=== PATIENT | female | born 1975 | race Caucasian/White ===

== ENCOUNTER 2020-10-03 17:33 | Emergency (ER) | payer OTHER, SELFPAY ==
[2020-10-03] VITALS (13 sets, daily range): BP systolic 109–140; BP diastolic 58–83; PULSE 63–81; RESP 12–20; TEMP 37.1; O2SAT 96–99
--- NOTE | ~2020-10-03 | US_ITS ---
EXAMINATION: US abdomen limited DATE: 10/03/2020 18:11 INDICATION: Right upper quadrant abdominal pain. TECHNIQUE: Multiple grayscale and Doppler ultrasound images of the abdomen were obtained. COMPARISON: CT abdomen and pelvis 05/22/2019 FINDINGS: The visualized portions of the head, body, and tail of the pancreas are normal. There is di ffuse hepatic steatosis. There is normal flow in main portal vein. The gallbladder is normal in size. No gallstones or gallbladder wall thickening. There was no sonographic Lopez sign. The common duct is dilated to 8 mm. Right kidney is normal. IMPRESSION: 1. Mildly dilated common duct, stable from 05/22/2019. 2. Diffuse hepatic steatosis. Reviewed, dictated and finalized at location A. ON KEEPER
--- NOTE | ~2020-10-03 | CT_ITS ---
EXAMINATION: CT abdomen pelvis w con DATE: 10/03/2020 19:07 INDICATION: Right abdominal pain. Nausea. TECHNIQUE: Computed tomography (CT) of the abdomen and pelvis was performed with 100 mL Omnipaque 350 intravenous contrast. Automated exposure control and iterative reconstruction technique were employe d. The dose-length product was 320.31 mGy-cm. COMPARISON: CT abdomen and pelvis 05/22/2019 FINDINGS: The visualized portions of the lung bases are clear without pneumonia or pleural effusion. The heart size is normal. No pericardial effusion. The liver, gallbladder, spleen, pancreas, adrenal glands, and kidneys are normal. There is diverticulosis of the colon without evidence of diverticulit is. There are no dilated loops of bowel. The appendix is normal. There are no pathologically enlarged lymph nodes. There is no free intraperitoneal fluid. There is mild lower thoracic spondylosis. IMPRESSION: 1. No etiology for the patient's symptoms. Reviewed, dictated and finalized at location A. TESTER
[2020-10-03 18:11] LABS: Add Urine Microscopic? NO; Appearance Urine Clear (Clear); Bilirubin Urine Negative (Negative); Blood Urine Negative (Negative); Color Urine Straw (Yellow); Glucose Urine UA Negative (Negative); Ketones Urine Negative (Negative); Leukocyte Esterase Ur Negative LEU/UL (Negative); Nitrate Urine Negative (Negative); Protein Urine Negative (Negative); Specific Grav Ur 1.011 (1.001-1.035); Urobilinogen Urine Negative mg/dL (<2.0)
[2020-10-03] MEDS: LACTATED RINGERS 1,000 ML 999 ML IV CONT (18:13)
[2020-10-03] MEDS: ONDANSETRON INJ 4 MG/2 ML VIAL IV PUSH (18:13)
[2020-10-03] MEDS: MORPHINE SULFATE (*CRX) 4 MG/ML INJ 6 MG IV PUSH (18:13)
--- NOTE | 2020-10-03 18:16 | ED.ABDPAIN ---
HPI - Abdominal Pain General Chief Complaint: Abdominal Pain Stated Complaint: R upper abd pain Time Seen by Provider: 10/03/20 17:42 Source: patient Mode of arrival: ambulatory Limitations: no limitations History of Present Illness HPI narrative: This is a 45 year old female who presents for evaluation of right upper abdominal pain. This pain started on , and it has been constant. Her pain is located on right upper quadrant. She reports nausea but no vomiting or diarrhea . She states she thought she may have had a UTI because she has some burning with urination. Her Urine at urgent care she reports was normal. She denies hematuria, fever, chills. She was seen by her PCP today and she was referred to ER for further testing. Her pain is worse with eating. Related Data Allergies Allergy/AdvReac Type Severity Reaction Status Date / Time aspirin [From Percodan] Allergy Headache Verified 10/03/20 17:35 oxycodone AdvReac Unknown Irritable Verified 10/03/20 17:35 Review of Systems Review of Systems: All systems reviewed & are unremarkable except as noted in HPI and below Constitutional: Constitutional: Denies chills and Denies fever(s) Cardiovascular: Cardiovascular: Denies chest pain Respiratory: Respiratory: Denies cough and Denies dyspnea Gastrointestinal: Gastrointestinal: Reports abdominal pain, Denies diarrhea, Reports nausea and Denies vomiting Genitourinary: Genitourinary: Denies hematuria, Denies nocturia, Reports dysuria and Reports flank pain [facility] Past Medical History Medical History (Updated 10/04/20 @ 00:00 by Background Daemon) Acute abdominal pain BMI 26.0-26.9,adult Carpal tunnel syndrome on both sides Chronic neck pain Family history of colon cancer in father GERD (gastroesophageal reflux disease) Migraine without aura and without status migrainosus, not intractable Seasonal allergic rhinitis Surgical History Surgical History (Updated 10/03/20 @ 19:47 by Riana Goss MD) History of partial hysterectomy Family History Family History (Updated 12/26/18 @ 13:14 by DOCTOR UNKNOWN) Father Family history of chronic obstructive pulmonary disease Family history of malignant neoplasm of gastrointestinal tract Family history of lung cancer Social History Social History (Updated 10/03/20 @ 16:38 by Kip Chris [facility]) Years smoked: 20 Smoking status: Current some day smoker Alcohol intake: current Substance use: never Exam Const: General: no acute distress and alert Orientation/consciousness: patient oriented x3 Eyes: EOM: EOMs intact bilaterally Resp: Effort & Inspection: normal respiratory effort and no retractions Auscultation: clear to auscultation bilaterally Cardio: Rate: regular rate Rhythm: regular rhythm Heart sounds: no murmurs GI: GI Palp: Yes Soft to palpation, Yes Tenderness to palpation present (GI) (RUQ, RLQ), No Guarding due to palpation present (GI) and No Rigid due to palpation Auscultation: normal bowel sounds Back/Spine/Pelvis: Back: no CVA tenderness Skin: General skin exam: normal color Rashes: no rashes Other: no abdominal rash Psych: Mental Status: mental status grossly normal Affect: normal affect Course Reevaluation(s) Reevaluation #1: I discussed unremarkable labs and imaging with patient. She reports the morphine helped with her pain but it is starting to return. I Discussed my conversation with Dr. Michael and the discharge plan Date: 10/03/20 Time: 19:46 Consultations Consultation #1: I Discussed labs and imaging with Dr. Michael. He states patient should increase her pepcid to twice a day. He also request covid testing given patient's atypical symptoms Date: 10/03/20 Time: 19:45 Vital Signs Vital signs: Vital Signs Pulse Rate 81 10/03/20 17:48 Respiratory Rate 20 10/03/20 17:48 Pulse Oximetry 98 10/03/20 17:48 Temperature 98.8 F 10/03/20 17:51 Pulse Rate 63 10/03/20 20
[2020-10-03 18:32] LABS: Basophils Absolute Auto 0.1 K/mm3 (0.0-0.1); Basophils Percent Auto 0.7 % (0.2-1.2); Eosinophils Absolute Auto 0.2 K/mm3 (0-0.3); Eosinophils Percent Auto 2.3 % (0-4.4); Hematocrit 38.8 % (37.0-47.0); Hemoglobin 13.3 g/dL (12.0-15.0); Immature Granulocyte Absolute 0.03 K/mm3 (0.00-0.031); Immature Granulocyte Percent A 0.4 % (0-0.5); Lymphocytes Absolute Auto 2.31 K/mm3 (0.9-3.2); Lymphocytes Percent Auto 31.9 % (18.3-44.2); Mean Corpuscular HGB Conc 34.3 g/dl (32-36); Mean Corpuscular Hemoglobin 30.9 pg (26-34); Monocytes Absolute Auto 0.5 K/mm3 (0.1-0.6); Monocytes Percent Auto 6.6 % (2.6-8.5); Neutrophils Absolute Auto 4.2 K/mm3 (1.3-6.7); Neutrophils Percent Auto 58.1 % (45.5-73.1); Platelet Count Result 309 k/mm3 (150-375); Red Blood Count 4.31 M/mm3 (4.2-5.4); Red Cell Distribution Width 12.3 % (11.5-14.5); White Blood Count 7.2 K/mm3 (4.5-10.0)
[2020-10-03 18:44] LABS: Alanine Aminotransferase 18 U/L (4-35); Albumin Level 4.2 g/dL (3.5-5.1); Alkaline Phosphatase 64 U/L (38-126); Anion Gap 6 mmol/L (8-16); Aspartate Amino Transferase 21 U/L (14-36); Bilirubin,Total 0.2 mg/dL (0.2-1.3); Blood Urea Nitrogen 13 mg/dL (7-17); Calcium 9.3 mg/dL (8.4-10.2); Carbon Dioxide 23 mmol/L (22-30); Chloride 110 mmol/L (98-107); Estimated CRCL calculation 93 ml/min; Estimated Glomerular Filt Rate > 60; Glucose 93 mg/dL (65-105); Lipase 44 U/L (23-300); Potassium 4.1 mmol/L (3.4-5.0); Sodium 139 mmol/L (137-145)
[2020-10-04 17:46] LABS: SARS-CoV-2 RNA PCR Negative
== END 2020-10-03 20:36 | disposition home or self-care (01) ==
PROVIDERS: Emergency Medicine; Emergency Provider General Practice; PCP Family Medicine
DX: R10.11 Right upper quadrant pain (principal); K21.9 Gastro-esophageal reflux disease without esophagitis; Z20.828 Contact with and (suspected) exposure to other viral communicable diseases; F17.210 Nicotine dependence, cigarettes, uncomplicated; K76.0 Fatty (change of) liver, not elsewhere classified
CPT/HCPCS: 36415; 74177; 76705; 80053; 81003; 81025; 83690; 85025; 96361; 96374; 96375; 99284; C9803; J2270; J2405; J7120; Q9967; U0003; U0005

== ENCOUNTER 2020-10-11 11:02 | Outpatient (CLI) | payer OTHER, SELFPAY ==
--- NOTE | ~2020-10-11 | NM_ITS ---
EXAMINATION: NM hepatobiliary wo pharm DATE: 10/11/2020 14:27 INDICATION: Right upper quadrant abdominal pain. COMPARISON: CT abdomen and pelvis 10/03/2020 TECHNIQUE: 5.1 mCi Tc-99m mebrofenin (Choletec) was administered intravenously. Scintigraphic images of the abdomen were obtained for one hour. Then, the patient drank 8 oz Ensure, and imaging was cont inued for 60 minutes. FINDINGS: There is normal clearance of radiotracer from the blood pool. There is homogeneous tracer u ptake by the liver. Activity progresses to the bowel and gallbladder. Gallbladder ejection fraction (GBEF) was 82%. Note that with this technique, normal GBEF >= 33%. IMPRESSION: 1. Normal hepatobiliary scintigraphy. Reviewed, dictated and finalized at location A. ER MACHINE
== END 2020-10-11 11:03 | disposition home or self-care (01) ==
PROVIDERS: PCP Family Medicine; Visit Provider Family Medicine
DX: R10.11 Right upper quadrant pain (principal)
CPT/HCPCS: 78226; A9537

== ENCOUNTER 2020-12-02 14:01 | Outpatient (CLI) | payer OTHER, SELFPAY ==
[2020-12-02 15:01] LABS: Alanine Aminotransferase 18 U/L (4-35); Albumin Level 4.6 g/dL (3.5-5.1); Alkaline Phosphatase 63 U/L (38-126); Aspartate Amino Transferase 23 U/L (14-36); Bilirubin,Total 0.2 mg/dL (0.2-1.3)
== END 2020-12-02 14:02 | disposition home or self-care (01) ==
LOC: ANHLAB 14:03
PROVIDERS: PCP Family Medicine; Visit Provider Internal Medicine Gastroenterology
DX: R10.11 Right upper quadrant pain (principal)
CPT/HCPCS: 36415; 80076

== ENCOUNTER → 2021-02-28 00:45 | Outpatient (CLI) | payer OTHER, SELFPAY ==
[2021-02-28 17:52] LABS: SARS-CoV-2 RNA PCR Negative
== END ==
PROVIDERS: PCP Family Medicine; Visit Provider Internal Medicine Gastroenterology
DX: Z01.812 Encounter for preprocedural laboratory examination (principal); Z20.822 Contact with and (suspected) exposure to COVID-19
CPT/HCPCS: C9803; U0003; U0005

== ENCOUNTER 2021-03-03 00:53 | Day surgery (SDC) | payer OTHER, SELFPAY ==
[2021-02-17 15:00] VITALS: BMI 28.5
[2021-03-03 10:10] VITALS: BP 124/56; PULSE 63; RESP 20; TEMP 36.2; O2SAT 99; BMI 28.4
--- NOTE | 2021-03-03 10:23 | WPDANESEPPF ---
Anes - Initial Pre Proc Eval Procedure: Operation Date: 03/03/21 11:00 Proposed Procedures p Esophagogastroduodenoscopy - Abel Gutiérrez MD Date/Time: 03/03/21 10:23 Surgeon: Abel Gutiérrez MD Pre Op Diagnosis: GERD, Right upper quad pain Patient Data Age: 45 Gender: F Height: 1.6 m Weight: 72.9 kg Last Vital Signs Temp 36.2 C L 03/03/21 10:10 Pulse 63 03/03/21 10:10 Resp 20 03/03/21 10:10 BP 124/56 L 03/03/21 10:10 Pulse Ox 99 03/03/21 10:10 Allergies Allergy/AdvReac Type Severity Reaction Status Date / Time aspirin [From Percodan] Allergy Other Verified 03/03/21 10:08 oxycodone [From Percodan] Allergy Other Verified 03/03/21 10:08 Home Medications Medication Instructions Recorded Confirmed Type lansoprazole 30 mg capsule,delayed 30 mg PO DAILY #30 cap 12/02/20 02/17/21 Rx release ascorbic acid (vitamin C) 500 mg PO DAILY 02/17/21 02/17/21 History ibuprofen 600 mg PO TID PRN 02/17/21 02/17/21 History Patient hx anesthesia problems: none Family hx anesthesia problems: none PMFSH Past Medical History Medical History Acute abdominal pain BMI 26.0-26.9,adult Carpal tunnel syndrome on both sides Chronic neck pain Family history of colon cancer in father GERD (gastroesophageal reflux disease) Migraine without aura and without status migrainosus, not intractable RUQ pain Seasonal allergic rhinitis Surgical History Surgical History History of partial hysterectomy Family History Family History Father Family history of chronic obstructive pulmonary disease Family history of malignant neoplasm of gastrointestinal tract Family history of lung cancer Social History Social History Years smoked: 20 Smoking status: Former smoker Tobacco type: cigarettes and e-cigarettes/vaping Alcohol intake: current Alcohol use details: monthly Substance use: never Living arrangements: with family Spiritual care concerns: No Anes - Eval Final PreProcedure Day of Procedure 03/03/21 10:23 Patient weight: overweight Heart: regular rate and rhythm Lungs: clear to auscultation Airway: Mallampati scale class 1 Neurological: alert and oriented Last oral intake: >/= 8 hours ASA classification: II Emergent: no Anesthetic plan: proceed Anesthesia type and monitoring: general GIVS and standard monitoring Informed Consent: The patient's anesthetic plan and its attendant risks and benefits were discussed with the patient/family/POA. Questions were solicited and answers provided to the satisfaction of the patient/family/POA.
[2021-03-03] MEDS: LACTATED RINGERS 1,000 ML 30 ML IV CONT (10:33)
--- NOTE | 2021-03-03 10:55 | WPDGICN ---
Assessment and Plan Assessment and plan (1) RUQ pain: Code(s): R10.11 - Right upper quadrant pain Status: Acute Assessment and Plan: Patient with right upper quadrant pain and tenderness. Recent CT scan gallbladder ultrasound and HIDA scan reported to be normal. Plan is for EGD to further look for etiology of her discomfort. Further recommendations will be given after endoscopy. (2) Family history of colon cancer in father: Code(s): Z80.0 - Family history of malignant neoplasm of digestive organs Status: Acute Assessment and Plan: Patient has a family history of colon cancer in her father. Last colonoscopy [address] Ean Benson. Plan is for follow-up colonoscopy at 5 year intervals. Suggest follow-up colonoscopy 2022. GI Consult Note Consult date/time: 03/03/21 10:55 HPI: Stephanie Elizabeth is a 45 year old female Presents for EGD. Patient recently seen by nurse practitioner in the office. Patient has right upper quadrant pain and tenderness that is been present for 3 months. She states that is not particularly aggravated by diet nor activity. Her bowel habits are regular. She recently went to the ER. Patient's CT scan was unremarkable. Ultrasound and HIDA scan were unremarkable. A colonoscopy was performed by Dr. Kyle in 2018 and was found to be unremarkable. Patient's family history is significant that her father had colon cancer. Patient presents today for EGD to further assess her right upper quadrant pain. Review of Systems Review of Systems: All systems reviewed & are unremarkable except as noted in HPI and below PMFSH Past Medical History Medical History Acute abdominal pain BMI 26.0-26.9,adult Carpal tunnel syndrome on both sides Chronic neck pain Family history of colon cancer in father GERD (gastroesophageal reflux disease) Migraine without aura and without status migrainosus, not intractable RUQ pain Seasonal allergic rhinitis Surgical History Surgical History History of partial hysterectomy Family History Family History Father Family history of chronic obstructive pulmonary disease Family history of malignant neoplasm of gastrointestinal tract Family history of lung cancer Social History Social History Years smoked: 20 Smoking status: Former smoker Tobacco type: cigarettes and e-cigarettes/vaping Alcohol intake: current Alcohol use details: monthly Substance use: never Living arrangements: with family Spiritual care concerns: No Meds Home Medications and Allergies Home Medications Medication Instructions Recorded Confirmed Type lansoprazole 30 mg capsule,delayed 30 mg PO DAILY #30 cap 12/02/20 02/17/21 Rx release ascorbic acid (vitamin C) 500 mg PO DAILY 02/17/21 02/17/21 History ibuprofen 600 mg PO TID PRN 02/17/21 02/17/21 History Allergies Allergy/AdvReac Type Severity Reaction Status Date / Time aspirin [From Percodan] Allergy Other Verified 03/03/21 10:08 oxycodone [From Percodan] Allergy Other Verified 03/03/21 10:08 Vital Signs Vital Signs - 24 hr 03/03/21 10:10 Temperature 97.1 F L Pulse Rate 63 Respiratory Rate 20 Blood Pressure 124/56 L Pulse Oximetry 99 Exam Narrative: Exam Narrative: Physical exam reveals patient to be alert. Vital signs stable. HEENT exam is unremarkable. Patient is anicteric. Lungs are clear to auscultation and percussion. Heart is without murmur. Abdomen bowel sounds are present soft she is somewhat tender in the right upper quadrant. No masses are elicited. Digital rectal exam normal.
[2021-03-03 11:10] VITALS: BP 102/54; PULSE 65; RESP 17; O2SAT 99
[2021-03-03 11:20] VITALS: BP 110/68; PULSE 60; RESP 17; O2SAT 100
[2021-03-03 11:30] VITALS: BP 100/55; PULSE 63; RESP 19; O2SAT 100
== END 2021-03-03 11:49 | disposition home or self-care (01) ==
PROVIDERS: PCP Family Medicine; Visit Provider Internal Medicine Gastroenterology
PROC: 0DJ08ZZ Inspection of Upper Intestinal Tract, Via Natural or Artificial Opening Endoscopic (ICD-10-PCS; CPT 43235; principal; 2021-03-03 11:00)
DX: R10.11 Right upper quadrant pain (principal); K29.50 Unspecified chronic gastritis without bleeding; K25.3 Acute gastric ulcer without hemorrhage or perforation; Z80.0 Family history of malignant neoplasm of digestive organs; Z87.19 Personal history of other diseases of the digestive system; Z87.891 Personal history of nicotine dependence
CPT/HCPCS: 43239; 88305; 88342; C9803; J2704; J7120; U0003; U0005

== ENCOUNTER → 2021-05-09 02:50 | Outpatient (CLI) | payer OTHER, SELFPAY ==
[2021-05-09 18:36] LABS: SARS-CoV-2 RNA PCR Negative
== END ==
PROVIDERS: PCP Family Medicine; Visit Provider Internal Medicine Gastroenterology
DX: Z01.812 Encounter for preprocedural laboratory examination (principal); Z20.822 Contact with and (suspected) exposure to COVID-19
CPT/HCPCS: C9803; U0003; U0005

== ENCOUNTER 2021-05-12 01:45 | Day surgery (SDC) | payer OTHER, SELFPAY ==
[2021-05-01 12:33] VITALS: BMI 28.3
[2021-05-12 08:11] VITALS: BP 109/49; PULSE 69; RESP 16; TEMP 36.5; O2SAT 100; BMI 28.8
[2021-05-12] MEDS: LACTATED RINGERS 1,000 ML 150 ML IV CONT (08:22)
--- NOTE | 2021-05-12 08:25 | WPDGICN ---
Assessment and Plan Assessment and plan (1) Gastric ulcer: Onset Date: 03/03/21 Code(s): K25.9 - Gastric ulcer, unspecified as acute or chronic, without hemorrhage or perforation Status: Acute Assessment and Plan: patient has gastric ulcer identified by endoscopy 2 months ago. She has been maintained on lansoprazole 30mg p.o. b.i.d.. Plan is for follow-up EGD at this time. Further recommendations will be given after endoscopy. (2) RUQ pain: Code(s): R10.11 - Right upper quadrant pain Status: Acute Assessment and Plan: Patient has right upper quadrant pain which is improving on PPI therapy. Presumed to be related to her ulcer. Follow-up EGD today. (3) Family history of colon cancer in father: Code(s): Z80.0 - Family history of malignant neoplasm of digestive organs Status: Acute Assessment and Plan: Patient's father had colon cancer. Last colonoscopy was 2017. Plan is for follow-up colonoscopy in 2022. GI Consult Note Consult date/time: 05/12/21 08:25 HPI: Stephanie Elizabeth is a 45 year old female He presents for follow-up EGD. Patient was found to have gastric ulcer 2 months ago. She has been on lansoprazole 30mg p.o. b.i.d.. Reports that she is feeling much better. She continues to have mild right upper quadrant abdominal discomfort. EGD is anticipated today for follow-up after 2 months of therapy. Family history is significant her father had colon cancer. Patient had colonoscopy 2017. Follow-up colonoscopy is anticipated 2022. Review of Systems Review of Systems: All systems reviewed & are unremarkable except as noted in HPI and below PMFSH Past Medical History Medical History (Updated 03/03/21 @ 12:41 by Oskar Michael MD) Acute abdominal pain BMI 26.0-26.9,adult Carpal tunnel syndrome on both sides Chronic neck pain Family history of colon cancer in father Gastric ulcer (03/03/21) superficial benign ulcers in stomach on EGD 03/03/2021, Dr. Gutiérrez, repeat EGD in 2 months GERD (gastroesophageal reflux disease) Migraine without aura and without status migrainosus, not intractable RUQ pain Seasonal allergic rhinitis Surgical History Surgical History History of partial hysterectomy Family History Family History Father Family history of chronic obstructive pulmonary disease Family history of malignant neoplasm of gastrointestinal tract Family history of lung cancer Social History Social History Smoking packs per day: 1 Smoking cigarettes per day: 20.0 Years smoked: 35 Smoking pack-years: 35.00 Smoking status: Former smoker Tobacco type: cigarettes and e-cigarettes/vaping Alcohol intake: current Alcohol use details: rarely Substance use: never Living arrangements: with family Spiritual care concerns: No Meds Home Medications and Allergies Home Medications Medication Instructions Recorded Confirmed Type ascorbic acid (vitamin C) 500 mg PO DAILY 02/17/21 05/12/21 History lansoprazole 30 mg capsule,delayed 30 mg PO BID #60 cap 03/03/21 05/12/21 Rx release Allergies Allergy/AdvReac Type Severity Reaction Status Date / Time aspirin [From Percodan] Allergy Other Verified 05/12/21 08:09 oxycodone [From Percodan] Allergy Other Verified 05/12/21 08:09 Vital Signs Vital Signs - 24 hr 05/12/21 08:11 Temperature 97.7 F Pulse Rate 69 Respiratory Rate 16 Blood Pressure 109/49 L Pulse Oximetry 100 Exam Narrative: Physical exam reveals patient be alert. Vital signs stable. HEENT exam is unremarkable. Patient is anicteric. Lungs are clear to auscultation and percussion. Heart is without murmur or extra sounds. Abdominal exam bowel sounds are present soft nontender with no organomegaly.
--- NOTE | 2021-05-12 08:28 | WPDANESEFPP ---
Anes - Eval Final PreProcedure Day of Procedure 05/12/21 08:28 Patient weight: overweight Heart: regular rate and rhythm Lungs: clear to auscultation Airway: Mallampati scale class 1 Neurological: alert and oriented Last oral intake: >/= 8 hours ASA classification: II Emergent: no Anesthetic plan: proceed Anesthesia type and monitoring: general GIVS and standard monitoring Results Review: All pre-operative results and documents have been reviewed as part of the pre-operative evaluation. Informed Consent: The patient's anesthetic plan and its attendant risks and benefits were discussed with the patient/family/POA. Questions were solicited and answers provided to the satisfaction of the patient/family/POA.
[2021-05-12 09:09] VITALS: BP 89/51; PULSE 67; RESP 19; O2SAT 97
[2021-05-12 09:19] VITALS: BP 93/53; PULSE 68; RESP 23; O2SAT 99
[2021-05-12 09:29] VITALS: BP 79/57; PULSE 73; RESP 20; O2SAT 100
== END 2021-05-12 09:39 | disposition home or self-care (01) ==
PROVIDERS: PCP Family Medicine; Visit Provider Internal Medicine Gastroenterology
PROC: 0DJ08ZZ Inspection of Upper Intestinal Tract, Via Natural or Artificial Opening Endoscopic (ICD-10-PCS; CPT 43235; principal; 2021-05-12 09:00)
DX: Z09 Encounter for follow-up examination after completed treatment for conditions other than malignant neoplasm (principal); Z87.19 Personal history of other diseases of the digestive system; R10.11 Right upper quadrant pain; Z80.0 Family history of malignant neoplasm of digestive organs; Z87.891 Personal history of nicotine dependence
CPT/HCPCS: 43239; 87081; C9803; J2001; J2704; J7120; U0003; U0005

== ENCOUNTER → 2022-01-07 16:54 | Outpatient (CLI) | payer OTHER, SELFPAY ==
--- NOTE | ~2022-01-07 | XR_ITS ---
XR shoulder RT min 2V DATE: 01/07/2022 17:14 INDICATION: Right shoulder pain TECHNIQUE: 4 views COMPARISON: None FINDINGS: Approximately 1 cm benign lucent lesion with thin sclerotic rim of the superolateral aspect of the right humeral head. Normal alignment at the acromioclavicular and glenohumeral joints. No fracture, dislocation, perioste al reaction or bone destruction is noted otherwise. No abnormal soft tissue calcification. Mild dextroscoliosis of the upper thoracic spine and minimal levoscoliosis of the lower thoracic spin e. IMPRESSION: Benign humeral head cyst Reviewed, dictated and finalized at location A. IMPRESSION: Benign humeral head cyst
== END ==
PROVIDERS: PCP Family Medicine; Visit Provider Nurse Practitioner Family
DX: M25.511 Pain in right shoulder (principal)
CPT/HCPCS: 73030

== ENCOUNTER 2022-01-27 16:25 | Outpatient (CLI) | payer OTHER, SELFPAY ==
--- NOTE | ~2022-01-27 | MR_ITS ---
EXAMINATION: MR shoulder RT wo con DATE: 01/27/2022 17:34 INDICATION: Right shoulder pain TECHNIQUE: Magnetic resonance imaging (MRI) of the right shoulder was performed without intravenous c ontrast. Sequences included axial PD-weighted FS FSE, coronal oblique PD-weighted FS FSE, coronal obl ique T2-weighted FS FSE, sagittal PD-weighted FS FSE, and sagittal T1-weighted SE. COMPARISON: None. FINDINGS: Coracoacromial arch: The acromion undersurface is curved in morphology (type II) however the acromion also appears thinned and there are few foci of susceptibility artifact in the soft tissues anterior to the acromion consi stent with prior acromioplasty. The coracoacromial ligament is normal. Mild acromioclavicular osteoar thritis. A pair of ganglion cysts arise from the acromioclavicular joint with the larger more medial 10 mm cyst along the posterior superior margin of the distal clavicle and a smaller and more lateral multilobulated cyst cephalad to the medial rim of the acromion. Rotator cuff: Moderate supraspinatus and mild infraspinatus tendinopathy. Suture anchors along the superior and mid dle facets of the greater tuberosity and foci of susceptibility artifact along the supraspinatus tend on consistent with prior rotator cuff repair which appears intact with no fluid signal intensity tear defect or torn tendon margin to suggest recurrent tear. The teres minor tendon is normal. Minimal cruz bscapularis tendinopathy without discrete tear. Normal rotator cuff muscle bulk and signal. Biceps tendon, glenoid labrum and glenohumeral cartilage: Long head of the biceps tendon is normal. Degeneration of the posterosuperior glenoid labrum which ap pears diminutive with mild amorphous increased signal. Small marginal osteophytes and additional dege nerative tearing at the anteroinferior glenoid labrum. Partial-thickness cartilage loss which appears to involve greater than 50% the cartilage thickness with smooth chondral surface and without degener ative subchondral changes at the superomedial aspect of the humeral head. Fluid: Physiologic amount of fluid in the glenohumeral joint and biceps tendon sheath. No loose osteochondr al bodies. Small amount of fluid in the subacromial/subdeltoid bursa consistent with mild bursitis. Bones: Bone alignment is normal. No fracture or pathologic marrow replacing process. IMPRESSION: 1. Changes of prior right rotator cuff tear involving the supraspinatus and infraspinatus tendons wit h moderate and mild tendinopathy respectively but no evident recurrent tear. 2. Mild glenohumeral osteoarthritis with labral degeneration but posterior superiorly and anteroinfer iorly. 3. Mild acromioclavicular osteoarthritis with a couple ganglion cysts extending into the more cephala d soft tissues. 4. Changes of prior acromioplasty with underlying mild subacromial/subdeltoid bursitis. Reviewed, dictated and finalized at location B. IMPRESSION: 1. Changes of prior right rotator cuff tear involving the supraspinatus and inf raspinatus tendons with moderate and mild tendinopathy respectively but no evid ent recurrent tear. 2. Mild glenohumeral osteoarthritis with labral degeneration but posterior supe riorly and anteroinferiorly. 3. Mild acromioclavicular osteoarthritis with a couple ganglion cysts extending into the more cephalad soft tissues. 4. Changes of prior acromioplasty with underlying mild subacromial/subdeltoid b ursitis.
== END 2022-01-27 16:26 ==
LOC: MICIMG 16:26
PROVIDERS: PCP Family Medicine; Visit Provider Nurse Practitioner
DX: M19.011 Primary osteoarthritis, right shoulder (principal)
CPT/HCPCS: 73221

== ENCOUNTER 2022-04-05 17:58 | Observation (INO) | payer OTHER, SELFPAY ==
--- NOTE | ~2022-04-05 | XR_ITS ---
EXAMINATION: XR retrograde pyelo w/stent LT DATE: 04/06/2022 14:20 CDT INDICATION: LEFT SIDE SPECIAL RETROGRADE W/ STENT PLACEMENT . TECHNIQUE: 9 fluoroscopic images and 32 image cine clip of the left abdomen were obtained during left retrograde pyelography with stent placement performed by the surgeon. I was not present in the opera ting room. Fluoroscopy exposure time was 49.9 seconds. Cumulative dose was 0.29150 mGy2. COMPARISON: None FINDINGS: Wire and catheter access to the left collecting system. Several dilated calyces. Minimal contrast in the renal parenchyma. After stent deployment the distal coil projects over the bladder. Proximal coil not imaged. IMPRESSION: Fluoroscopic documentation of left retrograde pyelography with stent placement. Please refer to the o perative note for complete procedural details . Reviewed, dictated and finalized at location K. IMPRESSION: Fluoroscopic documentation of left retrograde pyelography with stent placement. Please refer to the operative note for complete procedural details .
--- NOTE | ~2022-04-05 | CT_ITS ---
EXAMINATION: CT abdomen pelvis w con DATE: 04/05/2022 21:20 INDICATION: LLQ abd pain, vomiting TECHNIQUE: Computed tomography (CT) of the abdomen and pelvis was performed with 100 mL Omnipaque-350 intravenous contrast. Automated exposure control and iterative reconstruction technique were employe d. The dose-length product was 549.93 mGy-cm. COMPARISON: 10/03/2020. FINDINGS: Lower thorax: Unremarkable Liver: Normal. Biliary/Gallbladder: Gallbladder is normal. No bile duct dilation. Pancreas: No mass or duct dilation. Spleen: Normal. Adrenals:No mass. Kidneys: No suspicious mass. Punctate nonobstructive right lower pole calculi. Mild-moderate left mal iectasis and pelviectasis. 4 x 5 mm left UPJ stone. GI tract: Distal esophageal and gastric wall edema as can be seen with esophagitis/gastritis. No smal l or large bowel dilation. Normal appendix. Diverticulosis without diverticulitis. Mesentery/Peritoneum: No ascites, mass, or free air. Retroperitoneum: No mass. Pelvis: Pelvic organs are within normal limits. Soft Tissues: Soft tissues and body wall unremarkable. Bones: No acute osseous finding. IMPRESSION: 4 x 5 mm left UPJ stone causing mild-moderate obstructive uropathy. Reviewed, dictated and finalized at location K.
[2022-04-05 18:02] VITALS: BP 136/73; PULSE 99; RESP 20; TEMP 36.4; O2SAT 99
--- NOTE | 2022-04-05 18:26 | ED.ABDPAIN ---
HPI - Abdominal Pain General Chief Complaint: Abdominal Pain <MIKE Charles Last Filed: 04/05/22 22:07> Stated Complaint: left flank pain <MIKE Charles Last Filed: 04/05/22 22:07> Time Seen by Provider: 04/05/22 18:17 <MIKE Charles Last Filed: 04/05/22 22:07> Source: patient <MIKE Charles Last Filed: 04/05/22 22:07> Mode of arrival: ambulatory <MIKE Charles Last Filed: 04/05/22 22:07> Limitations: no limitations <MIKE Charles Last Filed: 04/05/22 22:07> History of Present Illness HPI narrative: This is a 46 year old female that presents to the ER for left flank pain and abdominal pain. Onset suddenly the last couple of hours. Associated with nausea and vomiting. Denies fever, diarrhea, dysuria, hematuria. <MIKE Charles Last Filed: 04/05/22 22:07> Related Data Home Medications: Home Medications Medication Instructions Recorded Confirmed ascorbic acid (vitamin C) 500 mg 500 mg PO DAILY 02/17/21 01/07/22 tablet <MIKE Charles Last Filed: 04/05/22 22:07> Allergies/Adverse Reactions: Allergies Allergy/AdvReac Type Severity Reaction Status Date / Time aspirin [From Percodan] Allergy Other Verified 01/29/22 07:53 oxycodone [From Percodan] Allergy Other Verified 01/29/22 07:53 <MIKE Charles Last Filed: 04/05/22 22:07> Review of Systems Review of Systems: CONSTITUTIONAL: Denies fever GASTROINTESTINAL: Denies abdominal pain, nausea, vomiting GENITOURINARY: Denies dysuria or hematuria. <MIKE Charles Last Filed: 04/05/22 22:07> All systems reviewed & are unremarkable except as noted in HPI and below <MIKE Charles Last Filed: 04/05/22 22:07> PMF Past Medical History Medical History: Medical History Acute abdominal pain Acute non-recurrent maxillary sinusitis Acute vesicular eczema of foot BMI 26.0-26.9,adult BMI 28.0-28.9,adult Carpal tunnel syndrome on both sides Chronic neck pain Family history of colon cancer in father Gastric ulcer (03/03/21) superficial benign ulcers in stomach on EGD 03/03/2021, Dr. Gutiérrez, repeat EGD in 2 months. Repeat EGD on 05/12/2021 normal with healing of ulcer. GERD (gastroesophageal reflux disease) Insomnia Migraine without aura and without status migrainosus, not intractable Otitis media Right shoulder pain RUQ pain Seasonal allergic rhinitis <Ayala Bray PA-C - Last Filed: 04/05/22 22:07> Surgical History Surgical History: Surgical History H/O tubal ligation History of partial hysterectomy History of rotator cuff surgery <Ayala Bray PA-C - Last Filed: 04/05/22 22:07> Family History Family History: Family History Father Family history of chronic obstructive pulmonary disease Family history of malignant neoplasm of gastrointestinal tract Family history of lung cancer <Ayala Bray PA-C - Last Filed: 04/05/22 22:07> Social History Social History: Social History Smoking packs per day: 1 Smoking cigarettes per day: 20.0 Years smoked: 35 Smoking pack-years: 35.00 Smoking status: Former smoker Tobacco type: cigarettes and e-cigarettes/vaping Alcohol intake: current Alcohol use details: rarely Substance use: never Gender identity (if verbalized by the patient): Female Spiritual care concerns: No <Ayala Bray PA-C - Last Filed: 04/05/22 22:07> Exam Narrative: GENERAL: Well-appearing, well-nourished, and in mild acute distress due to pain. HEAD: Normocephalic, atraumatic. EYES: EOMI. CHEST: Clear to auscultation. No respiratory distress. No wheezes rales or rhonchi HEART: Regular rate and rhythm.
[2022-04-05 18:31] VITALS: BP 130/67; PULSE 66; RESP 12; O2SAT 100
--- NOTE | 2022-04-05 18:49 | PC.NURSE ---
pt states she had partial hysterotomy
[2022-04-05 18:54] LABS: Basophils Absolute Auto 0.1 K/mm3 (0.0-0.1); Basophils Percent Auto 0.7 % (0.2-1.2); Eosinophils Absolute Auto 0.2 K/mm3 (0-0.3); Eosinophils Percent Auto 1.9 % (0-4.4); Hematocrit 38.6 % (37.0-47.0); Hemoglobin 13.3 g/dL (12.0-15.0); Immature Granulocyte Absolute 0.07 K/mm3 (0.00-0.031); Immature Granulocyte Percent A 0.8 % (0-0.5); Lymphocytes Percent Auto 19.4 % (18.3-44.2); Mean Corpuscular HGB Conc 34.5 g/dl (32-36); Mean Corpuscular Hemoglobin 29.8 pg (26-34); Mean Corpuscular Volume 86.5 fl (80-100); Mean Platelet Volume 9.1 fl (7.4-10.4); Monocytes Absolute Auto 0.5 K/mm3 (0.1-0.6); Monocytes Percent Auto 6.2 % (2.6-8.5); Neutrophils Absolute Auto 6.2 K/mm3 (1.3-6.7); Platelet Count Result 376 k/mm3 (150-375); Red Blood Count 4.46 M/mm3 (4.2-5.4); Red Cell Distribution Width 12.3 % (11.5-14.5); White Blood Count 8.8 K/mm3 (4.5-10.0)
[2022-04-05] MEDS: ONDANSETRON INJ 4 MG/2 ML VIAL IV PUSH (18:59)
[2022-04-05] MEDS: SODIUM CHLORIDE 0.9% IV 1,000 ML 999 ML IV CONT (18:59)
[2022-04-05] MEDS: MORPHINE SULFATE (*CRX) 4 MG/ML INJ IV PUSH ×2 (18:59→21:52)
[2022-04-05 20:56] LABS: Calcium Oxalate Crystals Urine Many /hpf; Mucus Urine Rare /lpf; RBC Urine >75 /hpf (0-2); Squamous Epithelial Cell Urine Many /hpf (Few)
[2022-04-05 21:02] LABS: Alanine Aminotransferase 26 U/L (6-35); Albumin Level 4.4 g/dL (3.5-5.1); Alkaline Phosphatase 82 U/L (38-126); Anion Gap 12 mmol/L (8-16); Aspartate Amino Transferase 23 U/L (14-36); Bilirubin,Total 0.4 mg/dL (0.2-1.3); Blood Urea Nitrogen 13 mg/dL (7-17); Calcium 9.4 mg/dL (8.4-10.2); Carbon Dioxide 19 mmol/L (22-30); Chloride 104 mmol/L (98-107); Estimated CRCL calculation 62 ml/min; Estimated Glomerular Filt Rate > 60; Glucose 119 mg/dL (65-110); Lipase 33 U/L (23-300); Potassium 4.1 mmol/L (3.4-5.0); Sodium 135 mmol/L (137-145)
[2022-04-05 21:12] LABS: Add Urine Microscopic? YES; Appearance Urine Clear (Clear); Bilirubin Urine Negative (Negative); Blood Urine 3+ (Negative); Color Urine Yellow (Yellow); Glucose Urine UA Negative (Negative); Ketones Urine Negative (Negative); Leukocyte Esterase Ur Negative LEU/UL (Negative); Nitrate Urine Negative (Negative); Protein Urine Negative (Negative); Specific Grav Ur 1.025 (1.001-1.035); Urobilinogen Urine 0.2 mg/dL (<2.0)
--- NOTE | 2022-04-05 22:44 | PM.IMHP ---
H&P: HPI History of Present Illness Date/Time: 04/05/22 22:44 Chief Complaint: L flank pain. Narrative: This is a 46-year-old female with past medical history significant for carpal tunnel syndrome, chronic neck pain, gastroesophageal reflux disease, migraine, seasonal allergies. Patient presents to the emergency room due to left flank pain she rates at 10/10 in intensity this roughly started in the evening has sustained for the last several hours had some nausea and vomiting upon arrival to emergency room. Patient denies any fevers, rigors, chills, diarrhea, epigastric pain, cough, sputum production, patient is usually able to tolerate her meals. preliminary workup was significant for CT of abdomen and pelvis with: IMPRESSION: 4 x 5 mm left UPJ stone causing mild-moderate obstructive uropathy. Patient has been admitted for further evaluation management and treatment. Review of Systems Review of Systems: Left flank pain, nausea, vomiting. Constitutional: Constitutional: Denies chills, Denies fever(s), Denies malaise and Denies weakness Eyes: Eyes: Denies change in vision ENT: Denies dysphagia, Denies vertigo, Denies dizziness and Denies odynophagia Cardiovascular: Cardiovascular: Denies irregular heart rhythm, Denies lightheadedness, Denies palpitations and Denies dyspnea on exertion Respiratory: Respiratory: Denies chest congestion, Denies cough, Denies excessive phlegm production, Denies pain on inspiration, Denies dyspnea and Denies dyspnea on exertion Gastrointestinal: Gastrointestinal: Reports abdominal pain, Denies dyspepsia, Denies heartburn, Reports nausea and Reports vomiting Genitourinary: Genitourinary: Denies dysuria and Reports flank pain Musculoskeletal: Musculoskeletal: Denies back pain, Denies joint swelling and Denies muscle weakness Integumentary/Breasts: Skin/Breast: Denies rash Neurologic: Denies vertigo, Denies dizziness, Denies focal weakness and Denies Sensory deficit (Neuro) Psychiatric: Psychiatric: Reports no additional psychiatric complaints and Reports as per HPI Endocrine: Endocrine: Denies cold intolerance, Denies flushing, Denies heat intolerance, Denies polyphagia, Denies polydipsia and Denies palpitations Hematologic/Lymphatic: Hematologic/Lymphatic: Reports no additional hematologic/lymphatic complaints and Reports as per HPI Allergic/Immunologic: Allergic/Immunologic: Reports no additional allergic/immunologic complaints and Reports as per HPI [facility] Past Medical History Medical History Acute abdominal pain Acute non-recurrent maxillary sinusitis Acute vesicular eczema of foot BMI 26.0-26.9,adult BMI 28.0-28.9,adult Carpal tunnel syndrome on both sides Chronic neck pain Family history of colon cancer in father Gastric ulcer (03/03/21) superficial benign ulcers in stomach on EGD 03/03/2021, Dr. Gutiérrez, repeat EGD in 2 months. Repeat EGD on 05/12/2021 normal with healing of ulcer. GERD (gastroesophageal reflux disease) Insomnia Migraine without aura and without status migrainosus, not intractable Otitis media Right shoulder pain RUQ pain Seasonal allergic rhinitis Surgical History Surgical History H/O tubal ligation History of partial hysterectomy History of rotator cuff surgery Family History Family History (Updated 04/06/22 @ 00:33 by Nataliia Mckeon RN) Father Family history of malignant neoplasm of gastrointestinal tract Family history of lung cancer Family history of chronic obstructive pulmonary disease Cardiac arrhythmia Social History Social History Smoking packs per day: 1 Smoking cigarettes per day: 20.0 Years smoked: 35 Smoking pack-years: 35.00 Smoking status: Current some day smoker Tobacco type: e-cigarettes/vaping Alcohol intake: current Alcohol use details:
[2022-04-05 23:58] VITALS: BP 112/59; PULSE 72; O2SAT 99
[2022-04-06] VITALS (9 sets, daily range): BP systolic 105–119; BP diastolic 46–72; PULSE 62–73; RESP 14–19; TEMP 36.2–37; O2SAT 92–99; BMI 30.1
--- NOTE | 2022-04-06 00:31 | ADMGEN ---
This patient, Stephanie Elizabeth, was admitted to Medical Room 343-01. Patient/family oriented to hospital policies and general routines including ID bracelet, bed and alarms, visiting hours, pain management, procedures, bathroom and other care routines, personal items, smoking policy, room service/diet, and visiting hours. Information on how to activate the Rapid Response Team has been discussed. Patient/Family are encouraged to report perceived risks to care and to ask questions if they do not understand what they are told or what they should do.
[2022-04-06] MEDS: SODIUM CHLORIDE 0.9% IV 1,000 ML 125 ML IV CONT (06:18)
[2022-04-06] MEDS: PANTOPRAZOLE 40 MG TABLET PO (09:43)
[2022-04-06 09:59] LABS: Hematocrit 38.4 % (37.0-47.0); Hemoglobin 12.1 g/dL (12.0-15.0); Mean Corpuscular HGB Conc 31.5 g/dl (32-36); Mean Corpuscular Hemoglobin 30.3 pg (26-34); Mean Platelet Volume 9.3 fl (7.4-10.4); Platelet Count Result 269 k/mm3 (150-375); Red Cell Distribution Width 12.7 % (11.5-14.5); White Blood Count 7.5 K/mm3 (4.5-10.0)
--- NOTE | 2022-04-06 11:17 | WPDURCON ---
Assessment and Plan Assessment and plan (1) Ureterolithiasis: Onset Date: ~04/05/22 Code(s): N20.1 - Calculus of ureter Status: Acute Assessment and Plan: I gave her several options for the stone. One was a conservative trial of stone passage. One was discharged home and return later in the week for lithotripsy. The other was intervention in the form of ureteroscopy. She opts for ureteroscopy. She understands risks of bleeding, infection, damage to the urinary tract, inability to remove the stone. If unable to get to the stone I will simply leave a stent. She agrees to proceed. She will likely be discharged home after the procedure. (2) Hydronephrosis: Code(s): N13.30 - Unspecified hydronephrosis Status: Acute Urology Consult Note HPI Date Seen: 04/06/22 Requesting Physician: Silvia Pena MD Primary Care Provider: Oskar Michael MD Consult Narrative Narrative: Stephanie Elizabeth is a 46 year old female with no previous history of stone disease. She had acute onset of left flank pain yesterday afternoon at 5:00 p.m.. Radiation noted to left lower quadrant. No gross hematuria. No fevers, chills, dysuria. No nausea vomiting. She presented the emergency room. She was diagnosed with a 4 x 5 mm proximal left ureteral stone with proximal hydronephrosis. She was uninfected. She required multiple doses of IV pain medicine. She was brought in for pain control and intervention for her stone Review of Systems Review of Systems: All systems reviewed & are unremarkable except as noted in HPI and below PMFSH Past Medical History Medical History Acute abdominal pain Acute non-recurrent maxillary sinusitis Acute vesicular eczema of foot BMI 26.0-26.9,adult BMI 28.0-28.9,adult Carpal tunnel syndrome on both sides Chronic neck pain Family history of colon cancer in father Gastric ulcer (03/03/21) superficial benign ulcers in stomach on EGD 03/03/2021, Dr. Gutiérrez, repeat EGD in 2 months. Repeat EGD on 05/12/2021 normal with healing of ulcer. GERD (gastroesophageal reflux disease) Insomnia Migraine without aura and without status migrainosus, not intractable Otitis media Right shoulder pain RUQ pain Seasonal allergic rhinitis Surgical History Surgical History H/O tubal ligation History of partial hysterectomy History of rotator cuff surgery Family History Family History Father Family history of malignant neoplasm of gastrointestinal tract Family history of lung cancer Family history of chronic obstructive pulmonary disease Cardiac arrhythmia Social History Social History Smoking packs per day: 1 Smoking cigarettes per day: 20.0 Years smoked: 35 Smoking pack-years: 35.00 Smoking status: Current some day smoker Tobacco type: e-cigarettes/vaping Alcohol intake: current Alcohol use details: rarely Substance use: never Gender identity (if verbalized by the patient): Female Spiritual care concerns: No Meds Home Medications and Allergies Home Medications Medication Instructions Recorded Confirmed Type ascorbic acid (vitamin C) 500 mg 500 mg PO DAILY PRN Cold Symptoms 02/17/21 04/06/22 History tablet zolpidem 10 mg tablet (Ambien) See Rx Instructions PO QHS PRN 01/07/22 04/06/22 Rx sleep #30 tabs lansoprazole 30 mg capsule,delayed 30 mg PO QAM 04/06/22 04/06/22 History release (Prevacid) meloxicam 15 mg tablet 15 mg PO DAILY PRN Pain 04/06/22 04/06/22 History prednisone 20 mg tablet 40 mg PO DAILY 04/06/22 04/06/22 History Allergies Allergy/AdvReac Type Severity Reaction Status Date / Time aspirin [From Percodan] Allergy Other Verified 01/29/22 07:53 oxycodone [From Percodan] Allergy Other Verified
--- NOTE | 2022-04-06 13:58 | WPDANESEPPF ---
Anes - Initial Pre Proc Eval Procedure: Operation Date: 04/06/22 14:15 Proposed Procedures p Cystoscopy, Left Ureteroscopy, Possible Left Retrograde Pyelogram, Possible Left Stone Extraction, Possible Left Stent Placement, Possible Holmium Laser Procedure - Heath Philip MD Date/Time: 04/06/22 13:58 Surgeon: Silvia Pena MD Pre Op Diagnosis: ureterolithiasis Patient Data Age: 46 Gender: F Height: 1.6 m Weight: 77.1 kg Last Vital Signs Temp 36.6 C 04/06/22 05:01 Pulse 66 04/06/22 05:01 Resp 18 04/06/22 05:01 BP 108/46 L 04/06/22 05:01 Pulse Ox 95 04/06/22 05:01 O2 Del Method Room Air 04/06/22 08:00 Allergies Allergy/AdvReac Type Severity Reaction Status Date / Time aspirin [From Percodan] Allergy Other Verified 01/29/22 07:53 oxycodone [From Percodan] Allergy Other Verified 01/29/22 07:53 Home Medications Medication Instructions Recorded Confirmed Type ascorbic acid (vitamin C) 500 mg 500 mg PO DAILY PRN Cold Symptoms 02/17/21 04/06/22 History tablet zolpidem 10 mg tablet (Ambien) See Rx Instructions PO QHS PRN 01/07/22 04/06/22 Rx sleep #30 tabs lansoprazole 30 mg capsule,delayed 30 mg PO QAM 04/06/22 04/06/22 History release (Prevacid) meloxicam 15 mg tablet 15 mg PO DAILY PRN Pain 04/06/22 04/06/22 History prednisone 20 mg tablet 40 mg PO DAILY 04/06/22 04/06/22 History Laboratory Tests 04/05/22 04/05/22 04/05/22 18:44 20:41 20:41 WBC 8.8 K/mm3 K/mm3 (4.5-10.0) RBC 4.46 M/mm3 M/mm3 (4.2-5.4) Hgb 13.3 g/dL g/dL (12.0-15.0) Hct 38.6 % % (37.0-47.0) MCV 86.5 fl fl (80-100) MCH 29.8 pg pg (26-34) MCHC 34.5 g/dl g/dl (32-36) RDW 12.3 % % (11.5-14.5) Plt Count 376 k/mm3 H k/mm3 (150-375) MPV 9.1 fl fl (7.4-10.4) Immature Gran % (Auto) 0.8 % H % (0-0.5) Neut % (Auto) 71.0 % % (45.5-73.1) Lymph % (Auto) 19.4 % % (18.3-44.2) [place] % (Auto) 6.2 % % (2.6-8.5) Eos % (Auto) 1.9 % % (0-4.4) Baso % (Auto) 0.7 % % (0.2-1.2) Lymph # (Auto) 1.70 K/mm3 K/mm3 (0.9-3.2) [place] # (Auto) 0.5 K/mm3 K/mm3 (0.1-0.6) Eos # (Auto) 0.2 K/mm3 K/mm3 (0-0.3) Baso # (Auto) 0.1 K/mm3 K/mm3 (0.0-0.1) Abs Immat Gran (auto) 0.07 K/mm3 H K/mm3 (0.00-0.031) Absolute Neuts (auto) 6.2 K/mm3 K/mm3 (1.3-6.7) Absolute Nucleated RBC 0.0 K/mm3 K/mm3 (0.0-0.012) Nucleated RBC % 0.0 % % (0.0-0.2) Sodium 135 mmol/L L mmol/L (137-145) Potassium 4.1 mmol/L mmol/L (3.4-5.0) Chloride 104 mmol/L mmol/L (98-107) Carbon Dioxide 19 mmol/L L mmol/L (22-30) Anion Gap 12 mmol/L mmol/L (8-16) BUN 13 mg/dL mg/dL (7-17) Creatinine 0.80 mg/dL mg/dL (0.7-1.0) Estim Creat Clear Calc 62 ml/min ml/min Estimated GFR > 60 (59 - ) Glucose 119 mg/dL H mg/dL (65-110) Calcium 9.4 mg/dL mg/dL (8.4-10.2) Total Bilirubin 0.4 mg/dL mg/dL (0.2-1.3) AST 23 U/L U/L (14-36) ALT 26 U/L U/L (6-35) Alkaline Phosphatase 82 U/L U/L (38-126) Total Protein 8.0 g/dL g/dL (6.3-8.2) Albumin 4.4 g/dL g/dL (3.5-5.1) Lipase 33 U/L U/L (23-300) Urine Color Yellow (Yellow) Urine Appearance Clear (Clear) Urine pH 6.0 (5.0-9.0) Ur Specific [place] 1.025 (1.001-1.035) Urine Protein Negative mg/dL mg/dL (Negative) Urine Glucose (UA) Negative mg/dL mg/dL (Negative) Urine Ketones Negative mg/dL mg/dL (Negative) Ur Blood (Man) 3+ H (Negative) Urine Nitrate Negative (Negative) Urine Bilirubin Negative (Negative) Urine Urobilinogen 0
--- NOTE | 2022-04-06 14:10 | WPDHPUPDATE1 ---
History and Physical Update Update Date/Time: 04/06/22 14:10 History and Physical has been reviewed, including an updated exam of the patient. There are NO changes in the patient's condition. Risks, benefits, and alternatives have been discussed and questions answered. Patient agrees to proceed with procedure.
[2022-04-06] MEDS: LACTATED RINGERS 1,000 ML 30 ML IV CONT (14:16)
[2022-04-06] MEDS: ceFAZolin 2 GM/D5W 50 ML 2 GM/50 ML BAG IVPB (14:29)
[2022-04-06] MEDS: LIDOCAINE HCL 2% GEL UROJET 10 ML PKG MUCOUS MEM (15:26)
--- NOTE | 2022-04-06 15:26 | PM.IMPN ---
Progress Note: A&P Assessment and Plan (1) Carpal tunnel syndrome on both sides: Code(s): G56.03 - Carpal tunnel syndrome, bilateral upper limbs Status: Acute Assessment and Plan: unchanged follow-up in outpatient setting (2) Migraine without aura and without status migrainosus, not intractable: Code(s): G43.009 - Migraine without aura, not intractable, without status migrainosus Status: Acute Assessment and Plan: unchanged follow-up in outpatient (3) GERD (gastroesophageal reflux disease): Qualifiers: Esophagitis presence: without esophagitis Qualified Code(s): K21.9 - Gastro-esophageal reflux disease without esophagitis Code(s): K21.9 - Gastro-esophageal reflux disease without esophagitis Status: Acute Assessment and Plan: PPI as needed (4) Chronic neck pain: Code(s): M54.2 - Cervicalgia; G89.29 - Other chronic pain Status: Acute Assessment and Plan: holding meloxicam Tylenol as needed (5) Hydronephrosis: Code(s): N13.30 - Unspecified hydronephrosis Status: Acute Assessment and Plan: 04/06/2022 interval history: patient was seen by Urology and recommended cystoscopy to possibly remove the stone and placed, and scheduled for procedure later this afternoon, patient says the pain is controlled denies any abdominal pain nausea or vomiting fever or chills, will follow-up and further recommendation to follow Subjective Date/time seen: 04/06/22 15:26 L flank pain. HPI-Narrative: ?This is a 46-year-old female with past medical history significant for carpal tunnel syndrome, chronic neck pain, gastroesophageal reflux disease, migraine, seasonal allergies.? Patient presents to the emergency room due to left flank pain she rates at 10/10 in intensity? this roughly started in the evening has sustained for the last several hours had some nausea and vomiting upon arrival to emergency room.? Patient denies any fevers, rigors, chills, diarrhea, epigastric pain, cough, sputum production, patient is usually able to tolerate her meals. preliminary workup was significant for CT of abdomen and pelvis with: 04/06/2022 interval history: patient was seen by Urology and recommended cystoscopy to possibly remove the stone and placed, and scheduled for procedure later this afternoon, patient says the pain is controlled denies any abdominal pain nausea or vomiting fever or chills, will follow-up and further recommendation to follow Review of Systems Review of Systems: All systems reviewed & are unremarkable except as noted in HPI and below Constitutional: Constitutional: Denies chills, Denies fever(s), Denies malaise and Denies weakness Exam Narrative: Patient is comfortable, NAD HEENT: eyes are clear and none icteric LUNGS: normal respiratory effort ABD: not distended Lower extremities: no edema SKIN: nonjaundiced Neuro: grossly intact. Objective Data Vital Signs Vital Signs: Vital Signs - 24 hr 04/05/22 18:02 04/05/22 18:31 04/05/22 23:58 Temperature 97.6 F Pulse Rate 99 66 72 Respiratory Rate 20 12 Blood Pressure 136/73 130/67 112/59 L Pulse Oximetry 99 100 99 Oxygen Delivery 04/06/22 00:19 04/06/22 01:26 04/06/22 05:01 Temperature 97.6 F 98 F Pulse Rate 65 66 Respiratory Rate 16 18 Blood Pressure 113/46 L 108/46 L Pulse Oximetry 97 95 Oxygen Delivery Room Air 04/06/22 08:00 04/06/22 14:08 Temperature 98.6 F Pulse Rate 71 Respiratory Rate 16 Blood Pressure 109/60 Pulse Oximetry 99 Oxygen Delivery Room Air Room Air Intake/Output Intake/Output: Intake & Output 04/03/22 04/04/22 04/05/22 04/06/22 23:59 23:59 23:59 23:59 Intake Total 1100 250 Output Total 100 Balance 1100 150 Meds/Results Medications: Active Medications Generic Name Dose Route Start Last Admin Trade Name Freq PRN Reason Stop Dose Admin Ascorbic Acid 500 mg 04/06/22 00:52 As
--- NOTE | 2022-04-06 15:32 | W.PM.PROC2 ---
Procedure Note - Detailed Date of Procedure 04/06/22 Pre-op Diagnosis Left proximal ureteral stone Post-op Diagnosis Same Procedure Performed Cystoscopy, left retrograde pyelogram, left ureteroscopy, holmium laser lithotripsy, stent placement Surgeon Heath Philip MD Anesthesia General Indications This is a woman with a left proximal ureteral stone. She would like intervention. She understands risks of bleeding, infection, damage to the urinary tract, inability remove the stone, stent discomfort. She agrees to proceed Findings Narrow ureteropelvic junction on the left. Stone encountered. Stone was broken into several wires size fragments. Description of Procedure She has correctly identified. Informed consent obtained. She from the operating room. She was given general anesthesia. She was placed in the dorsal thigh position. She was prepped and draped in a sterile fashion. Time-out performed. Cystoscopy revealed a normal-appearing bladder without tumors or stones or other abnormalities. Retrograde pyelogram showed a delicate ureter without extravasation or filling defect. There was a area at the UPJ where there was narrowing the filling defect present. There was hydronephrosis proximal to this area. I placed a guidewire in the kidney. I performed rigid ureteroscopy. I was able to get to the proximal ureter but not to the stone. I then switched out for flexible ureteroscopy. I was able to take the flexible ureteral scope all the way up to the UPJ. The UPJ was quite narrow. I used a 2nd wire to stiffen the scope to allowed me get into the kidney. The stone was then pushed into the lower pole. I examined the upper pole, the middle pole, the lower pole the stone was identified. It was basketed and brought out to the UPJ. Unfortunately I was unable to get the stone past the UPJ due to the narrowing. I then used the holmium laser at settings of a rate of 5 and a power of 1 to completely fragment obliterate the stone. I then got back into the kidney. I examined all calices again. I examined the upper pole, the middle pole, and lower pole. There was no stone fragment large enough for me to basket. I reshot a retrograde pyelogram to outline the anatomy. There is no extravasation. I removed the ureteral scope. I examined the ureter on the way down. There is no large stone fragments in the ureter but multiple small little of fragments that were all smaller than the Bentson wire. I then placed the 28 variable length stent. The proximal coil was in the upper pole kidney. This distal coil was in the bladder. The bladder was drained. She was awakened transferred to PACU in stable condition Implants Variable length stent Estimated Blood Loss 1 Urine Output 100 Drains No Complications No immediate complications Condition Stable Disposition PACU
[2022-04-06] MEDS: fentaNYL CITRATE INJ (*CRX) 100 MCG/2 ML VIAL 25 MCG IV PUSH ×2 (15:44→15:50)
--- NOTE | 2022-04-06 18:05 | PC.NURSE ---
Resident back up from surgery. Alert and oriented. Tolerating food well and no pain verbalized.
--- NOTE | 2022-04-06 18:16 | PM.DS ---
DS: Admitting Diagnosis Discharge Date 04/06/2022 Admitting Diagnosis L flank pain. DS: Discharge Diagnosis Discharge Diagnosis (1) Carpal tunnel syndrome on both sides: Code(s): G56.03 - Carpal tunnel syndrome, bilateral upper limbs Status: Acute Assessment and Plan: unchanged follow-up in outpatient setting (2) Migraine without aura and without status migrainosus, not intractable: Code(s): G43.009 - Migraine without aura, not intractable, without status migrainosus Status: Acute Assessment and Plan: unchanged follow-up in outpatient (3) GERD (gastroesophageal reflux disease): Qualifiers: Esophagitis presence: without esophagitis Qualified Code(s): K21.9 - Gastro-esophageal reflux disease without esophagitis Code(s): K21.9 - Gastro-esophageal reflux disease without esophagitis Status: Acute Assessment and Plan: PPI as needed (4) Chronic neck pain: Code(s): M54.2 - Cervicalgia; G89.29 - Other chronic pain Status: Acute Assessment and Plan: holding meloxicam Tylenol as needed (5) Hydronephrosis: Code(s): N13.30 - Unspecified hydronephrosis Status: Acute Assessment and Plan: 04/06/2022 interval history: patient was seen by Urology and recommended cystoscopy to possibly remove the stone and placed, and scheduled for procedure later this afternoon, patient says the pain is controlled denies any abdominal pain nausea or vomiting fever or chills, will follow-up and further recommendation to follow DS: Summary Hospital Course Reason for hospitalization: L flank pain. Narrative: ?This is a 46-year-old female with past medical history significant for carpal tunnel syndrome, chronic neck pain, gastroesophageal reflux disease, migraine, seasonal allergies.? Patient presents to the emergency room due to left flank pain she rates at 10/10 in intensity? this roughly started in the evening has sustained for the last several hours had some nausea and vomiting upon arrival to emergency room.? Patient denies any fevers, rigors, chills, diarrhea, epigastric pain, cough, sputum production, patient is usually able to tolerate her meals. preliminary workup was significant for CT of abdomen and pelvis with: Hospital Course: patient was seen by Urology and recommended cystoscopy to possibly remove the stone and placed, and scheduled for procedure later this? afternoon, patient says the pain is controlled denies any abdominal pain nausea or vomiting fever or chills, will follow-up and further recommendation to follow. patient was seen by Urology and had a cystoscopy, left retrograde pyelogram, left ureteroscopy, holmium laser lithotripsy, stent placement, patient is clinically stable will discharge patient today Time Spent with Patient Time attestation: Total time spent providing and/or coordinating discharge services: Exam Narrative: Patient is comfortable, NAD HEENT: eyes are clear and none icteric LUNGS: normal respiratory effort ABD: not distended Lower extremities: no edema SKIN: nonjaundiced Neuro: grossly intact. DS: Data Data Completed and Pending Labs on day of discharge: Labs from last 24 hours 04/06/22 04/05/22 04/05/22 09:52 20:41 20:41 WBC 7.5 RBC 4.00 L Hgb 12.1 Hct 38.4 MCV 96.0 D MCH 30.3 MCHC 31.5 L RDW 12.7 Plt Count 269 MPV 9.3 Immature Gran % (Auto) Neut % (Auto) Lymph % (Auto) Wheeler % (Auto) Eos % (Auto) Baso % (Auto) Lymph # (Auto) Wheeler # (Auto) Eos # (Auto) Baso # (Auto) Abs Immat Gran (auto) Absolute Neuts (auto) Absolute Nucleated RBC Nucleated RBC % Sodium 135 L Potassium 4.1 Chloride 104 Carbon Dioxide 19 L Anion Gap 12 BUN 13 Creatinine 0.80 Estim Creat Clear Calc 62 Estimated GFR > 60 Glucose 119 H Calcium 9.4 Total Bilirubin 0.4 AST 23 ALT 26 A
== END 2022-04-06 18:55 | disposition home or self-care (01) ==
LOC: ANHED 21:57 → ANH3MED 23:57
PROVIDERS: Family Medicine; Physician Assistant; Urology; Admitting Provider Internal Medicine; Emergency Provider Emergency Medicine; PCP Family Medicine; Visit Provider Internal Medicine
PROC: (CPT 52352; principal; 2022-04-06 14:15)
DX: N20.1 Calculus of ureter (principal); N13.30 Unspecified hydronephrosis; M54.2 Cervicalgia; G89.29 Other chronic pain; K21.9 Gastro-esophageal reflux disease without esophagitis; G47.00 Insomnia, unspecified; G56.03 Carpal tunnel syndrome, bilateral upper limbs; G43.009 Migraine without aura, not intractable, without status migrainosus; Z87.891 Personal history of nicotine dependence; Z79.52 Long term (current) use of systemic steroids; Z79.899 Other long term (current) drug therapy
CPT/HCPCS: 52325; 52332; 36415; 74177; 74420; 80053; 81001; 83690; 85025; 85027; 96365; 96374; 96375; 96376; 99285; A9270; C1769; C2617; G0378; J0131; J0690; J1100; J2250; J2270; J2405; J2704; J3010; J7030; J7120; Q9967